=== PATIENT | male | born 1980 | race Caucasian/White ===

== ENCOUNTER 2018-07-23 09:36 | Emergency (ER) | payer OTHER ==
[~2018-07-23] VITALS: Ht 185.4 cm; Wt 124.5 kg
[2018-07-23 09:47] VITALS: BP 140/99; PULSE 93; TEMP 98.2
[2018-07-23] MEDS ORDERED: PROZAC 20MG20 MG PO (09:58)
== END 2018-07-23 11:15 | disposition home or self-care (01) ==
LOC: COL.ER 09:36
DX: S16.1XXA Strain of muscle, fascia and tendon at neck level, initial encounter (principal); F32.9 Major depressive disorder, single episode, unspecified; V43.52XA Car driver injured in collision with other type car in traffic accident, initial encounter